=== PATIENT | female | born 1990 | race Caucasian/White ===

== ENCOUNTER 2017-10-24 06:43 | Inpatient (IN) | payer BC ==
[2017-10-24] MEDS ORDERED: RINGERS SOLUTION,LACTATED 300 ML IV ONE (06:59)
[2017-10-24] MEDS ORDERED: OXYTOCIN/NORMAL SALINE 20 UNIT/1,000 ML RTUINJ IV PRN ×2 (06:59→14:06)
[2017-10-24 08:00] LABS: ABSOLUTE EOSINOPHILS # (AUTO) 0.1 10^3/uL (0.0-0.6); ABSOLUTE LYMPHOCYTES (AUTO) 1.4 10^3/uL (0.5-4.7); ABSOLUTE MONOCYTES (AUTO) 0.4 10^3/uL (0.1-1.4); ABSOLUTE NEUT (AUTO) 4.5 10^3/uL (1.7-8.2); BASOPHILS % (AUTO) 0.5 % (0-2); EOSINOPHILS % (AUTO) 1.6 % (0-6); HEMATOCRIT 32.6 % (36.0-47.0); LYMPHOCYTES % (AUTO) 22.1 % (13-45); MEAN CORPUSCULAR HEMOGLOBIN 28.5 pg (27.0-33.4); MEAN CORPUSCULAR HGB CONC 33.9 g/dL (32.0-36.0); MEAN CORPUSCULAR VOLUME 84 fl (80-97); MONOCYTES % (AUTO) 6.6 % (3-13); PLATELET COUNT 168 10^3/uL (150-450); RED BLOOD COUNT 3.87 10^6/uL (3.72-5.28); RED CELL DISTRIBUTION WIDTH 17.7 % (11.5-14.0); SEGMENTED NEUTROPHILS % (AUTO) 69.2 % (42-78); TOTAL CELLS COUNTED % (AUTO) 100 %; WHITE BLOOD COUNT 6.5 10^3/uL (4.0-10.5)
[2017-10-24] MEDS ORDERED: MISOPROSTOL 0.2 MG TABLET ONE (08:12)
[2017-10-24] MEDS ORDERED: LIDOCAINE 1% INJ-PF (10 MG/ML) 30 ML SDV ONE (08:12)
[2017-10-24] MEDS ORDERED: OXYTOCIN/NORMAL SALINE 20 UNIT/1,000 ML RTUINJ ONE (08:12)
[2017-10-24 08:20] LABS: APPEARANCE,URINE CLOUDY; BILIRUBIN,URINE NEGATIVE (NEGATIVE); COLOR,URINE YELLOW; GLUCOSE, URINE NEGATIVE (NEGATIVE); KETONES,URINE NEGATIVE (NEGATIVE); LEUKOCYTE ESTERASE,URINE LARGE (NEGATIVE); NITRITE,URINE NEGATIVE (NEGATIVE); PROTEIN,URINE NEGATIVE (NEGATIVE)
[2017-10-24] MEDS: RINGERS SOLUTION,LACTATED 1,000 ML IV PRN ×3 (08:27→13:26)
[2017-10-24 08:40] LABS: URINE AMPHETAMINES SCREEN NEGATIVE; URINE BARBITURATES SCREEN NEGATIVE; URINE BENZODIAZEPINES SCREEN NEGATIVE; URINE COCAINE SCREEN NEGATIVE; URINE MARIJUANA (THC) SCREEN NEGATIVE; URINE METHADONE SCREEN NEGATIVE; URINE PHENCYCLIDINE SCREEN NEGATIVE
--- NOTE | 2017-10-24 09:12 | Admission Physical ---
Datetime Report Generated by CPN: 10/24/2017 09:12 CURRENT ADMISSION Chief Complaint: Scheduled Induction of Labor Indication for Induction: Maternal Diabetes Admit Impression : Term, Intrauterine ; Induction of Labor Admit Plan: Admit to Unit; Initiate Labor Induction Protocol ALLERGIES Medication Allergies: No Medication Allergies: No Known Allergies (10/24/2017) Latex: No Latex Allergies OBSTETRICAL HISTORY EDC: 10/28/2017 00:00 : 3 Para: 2 Term: 2 : 0 Ectopic: 0 Livin Cesareans: 0 Gestational Diabetes: Yes Rh Sensitization: No Incompetent Cervix: No VALERIO: No Infertility: No ART Treatment: No Uterine Anomaly: No IUGR: No Hx Previous C/S: No Macrosomia: No Hx Loss/Stillborn: No PIH: No Hx : No Placenta Previa/Abruption: No Depression/PP Depression: No PTL/PROM: No Post Hemorrhage: No Current Procedures: Ultrasound; NST Obstetrical History Comments: G1 2012 39.6 baby girl 8lbs 6oz G2 2013 40.1 baby girl 8lbs 1oz G3 current , GDM diet controlled SEE RECORDS Alcohol: No Marijuana : No Cocaine: No Other Illicit Drugs: No Cigarettes: Never Smoker. 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 No flares since 15 y/o. wisdom teeth removal (2005) mole removed (1995) INFECTIOUS HISTORY Gonorrhea: No Genital Herpes: No Chlamydia: No Tuberculosis: No Syphilis: No Hepatitis: No HIV/AIDS Exposure: No Rash or Viral Illness: No HPV: No PHYSICAL EXAM General: Normal HEENT: Normal Neurologic: Normal Thyroid: Normal Heart: Normal Lungs: Normal Breast: Normal Back: Normal Abdomen: Normal Genitourinary Exam: Normal Extremities: Normal DTRs: Normal Pelvic Type: Adequate Vital Signs: Reviewed VAGINAL EXAM Dilatation: 3 Effacement: 75 Station: -2 MEMBRANES Pooling: Negative Membranes: Intact FETUS A EGA: 39.3 Monitoring: External US FHR- Baseline: 145 Variability: Moderate 6-25bpm Accelerations: 15X15 Decelerations: None FHR Category: Category I Estimated Weight (gm): 3800 Presentation: Vertex PLANS FOR LABOR AND DELIVERY Labor and Delivery: None Pain Management: None Feeding Preference: Breast Circumcision: N/A INFORMED CONSENT Signature: with User ID: [email or web address]
--- NOTE | 2017-10-24 11:03 | L&D Progress Notes ---
PROGRESS NOTES Datetime Report Generated by CPN: 10/24/2017 11:02 PROGRESS NOTE Impression Other: IUP @ 39w3d- IOL-stable Procedures: Artificial ROM; Sterile Vag Exam Plan: Continue Present Management Informed Consent Obtained: Vaginal Delivery; Induction of Labor; Risks, Benefits and Alternatives Discussed Vital Signs : Reviewed; Within Normal Limits Comment: S: pt. reports mild cramping with contractions, ready for AROM O: VSS, pit @ 20mu/min, cervix as stated A: IUP @ [id number], AROM-clear fluid P: continue IOL, epidural prn VAGINAL EXAM Dilatation: 3-4 Dilatation: 3 Effacement: 50 Effacement: 75 Station: -2 Station: -2 Contractions: 2-4 MEMBRANES Pooling: Negative Membranes: Ruptured Membranes: Intact Amniotic Fluid Color: Clear FETUS A Accelerations: 15X15 Decelerations: None FHR Category: Category I : 39.3 Estimated Weight (gm): 3800 Presentation: Vertex SIGNATURE SIGNATURE: [id number] SIGNATURE: [id number] Assignment: Bre Enriquez MD Signature: with User ID: Katya : with User ID: [email or web address]
[2017-10-24] MEDS ORDERED: EPHEDRINE SULFATE INJ 50 MG/1 ML AMPULE ONE (12:20)
[2017-10-24] MEDS ORDERED: FENTANYL/BUPIVACAINE/NS/PF 300 MCG/150 ML RTUINJ EPI ONE (12:20)
[2017-10-24] MEDS ORDERED: BUPIVACAINE HCL 0.25 % INJ/PF (2.5 MG/1 ML) 30 ML VIAL ONE (12:20)
[2017-10-24] MEDS ORDERED: NA PHOS,M-B/NA PHOS,DI-BA (ADULT) 133 ML ENEMA PR PRN (14:06)
[2017-10-24] MEDS ORDERED: MAGNESIUM HYDROXIDE SUSP 30 ML UDCUP PO PRN (14:06)
[2017-10-24] MEDS ORDERED: PROMETHAZINE HCL 25 MG SUPP.RECT PR PRN (14:06)
[2017-10-24] MEDS ORDERED: DIPHENHYDRAMINE HCL 25 MG CAPSULE PO PRN (14:06)
[2017-10-24] MEDS ORDERED: PROMETHAZINE HCL 25 MG TABLET PO PRN (14:06)
[2017-10-24] MEDS ORDERED: DIPH/PERTUSS(ACELL)/TETANUS VAC/PF 0.5 ML SYR (>=10YO) IM PRN (14:06)
[2017-10-24] MEDS ORDERED: PROMETHAZINE HCL INJ 25 MG/1 ML VIAL IV PRN (14:06)
[2017-10-24] MEDS ORDERED: PSEUDOEPHEDRINE HCL 30 MG TABLET PO PRN (14:06)
[2017-10-24] MEDS ORDERED: ACETAMINOPHEN WITH CODEINE #3 TABLET PO PRN ×2 (14:06)
[2017-10-24] MEDS ORDERED: DIBUCAINE 1% OINTMENT 28 GM TP PRN (14:06)
[2017-10-24] MEDS ORDERED: ACETAMINOPHEN 325 MG TABLET PO PRN (14:06)
[2017-10-24] MEDS ORDERED: MEASLES,MUMPS&RUBELLA VACC/PF 0.5 ML VIAL SUBCUT PRN (14:06)
[2017-10-24] MEDS ORDERED: GLYCERIN/WITCH HAZEL LEAF 1 EACH MED..PAD TP PRN (14:06)
[2017-10-24] MEDS ORDERED: BENZOCAINE/MENTHOL AEROSOL SPRAY 56 ML TOP PRN (14:06)
[2017-10-24] MEDS ORDERED: ACETAMINOPHEN 650 MG SUPP.RECT PR PRN (14:06)
[2017-10-24] MEDS: FERROUS SULFATE 325 MG TABLET PO SCH (19:39)
[2017-10-24] MEDS: DOCUSATE SODIUM 100 MG CAPSULE PO SCH (19:39)
[2017-10-24] MEDS: FAMOTIDINE 20 MG TABLET PO SCH (21:43)
[2017-10-24] MEDS: IBUPROFEN 800 MG TABLET PO SCH (21:44)
[2017-10-25] MEDS: IBUPROFEN 800 MG TABLET PO SCH ×3 (05:47→21:24)
[2017-10-25 06:52] LABS: HEMATOCRIT 33.2 % (36.0-47.0); HEMOGLOBIN 11.4 g/dL (12.0-15.5); MEAN CORPUSCULAR HGB CONC 34.3 g/dL (32.0-36.0); MEAN CORPUSCULAR VOLUME 85 fl (80-97); PLATELET COUNT 150 10^3/uL (150-450); RED BLOOD COUNT 3.92 10^6/uL (3.72-5.28); RED CELL DISTRIBUTION WIDTH 17.8 % (11.5-14.0); WHITE BLOOD COUNT 8.6 10^3/uL (4.0-10.5)
--- NOTE | 2017-10-25 08:55 | PDOC PROGRESS REPORT ---
Subjective-OB Progress Note for:: 10/25/17 Subjective: day #1 s/p denies concerns, states lochia is stable pain is well controlled, voiding without difficulty. Physical Exam (OB) Vital Signs: Temp Pulse Resp BP Pulse Ox 98.2 F 85 18 127/77 H 100 10/24/17 19:20 10/24/17 19:20 10/24/17 19:20 10/24/17 19:20 10/24/17 19:20 Intake & Output 10/24/17 10/25/17 10/26/17 06:59 06:59 06:59 Weight 92.2 kg - Lochia Lochia Amount: Scant < 10 ml Lochia Color: Rubra/Red - Abdomen Description: Tender, Soft Hernia Present: No Fundal Description: Firm, Midline Fundal Height: u/u - u/2 Objective-Diagnostic Laboratory: 10/25/17 06:34 10/25/17 06:34 WBC 8.6 RBC 3.92 Hgb 11.4 L Hct 33.2 L MCV 85 MCH 29.0 MCHC 34.3 RDW 17.8 H Plt Count 150 Assessment and Plan(PN) - Assessment and Plan (1) Gestational diabetes mellitus (GDM) in childbirth, diet controlled Is this a current diagnosis for this admission?: Yes Plan: follow up yearly (2) Vaginal delivery Is this a current diagnosis for this admission?: Yes Plan: routine pp care - Time Spent with Patient Time with patient: Less than 15 minutes Critical Time spent with patient: Less than 15 minutes Medications reviewed and adjusted accordingly: Yes - Disposition Anticipated Discharge: Home Within: within 24 hours
[2017-10-25] MEDS: DOCUSATE SODIUM 100 MG CAPSULE PO SCH ×2 (11:05→18:40)
[2017-10-25] MEDS: FERROUS SULFATE 325 MG TABLET PO SCH ×2 (11:06→18:15)
[2017-10-25] MEDS: SENNOSIDES/DOCUSATE 8.6-50 MG 1 EACH TABLET PO SCH (11:06)
[2017-10-25] MEDS: PRENATAL VITAMIN W DHA CAPSULE PO SCH (11:06)
[2017-10-25] MEDS: FAMOTIDINE 20 MG TABLET PO SCH ×2 (11:15→21:15)
[2017-10-26] MEDS: IBUPROFEN 800 MG TABLET PO SCH (06:30)
[2017-10-26 08:46] VITALS: BP 130/74
[2017-10-26] MEDS: PRENATAL VITAMIN W DHA CAPSULE PO SCH (09:41)
[2017-10-26] MEDS: DOCUSATE SODIUM 100 MG CAPSULE PO SCH (09:41)
[2017-10-26] MEDS: FAMOTIDINE 20 MG TABLET PO SCH (09:41)
[2017-10-26] MEDS: FERROUS SULFATE 325 MG TABLET PO SCH (09:41)
[2017-10-26] MEDS: SENNOSIDES/DOCUSATE 8.6-50 MG 1 EACH TABLET PO SCH (09:41)
--- NOTE | 2017-10-26 09:47 | PDOC PROGRESS REPORT ---
Subjective-OB Progress Note for:: 10/26/17 Physical Exam (OB) Vital Signs: Temp Pulse Resp BP Pulse Ox 98.2 F 65 16 130/74 H 99 10/26/17 08:04 10/26/17 08:04 10/26/17 08:04 10/26/17 08:04 10/26/17 08:04 Intake & Output 10/25/17 10/26/17 10/27/17 06:59 06:59 06:59 Intake Total 975 Balance 975 - PIH/Pre-Eclampsia Headache: Absent Epigastric Pain: No Visual Changes: No - Lochia Lochia Amount: Small 10-25 ml Lochia Color: Rubra/Red - Abdomen Description: Soft Hernia Present: No Bowel Sounds: Normoactive Flatus Presence: Present Stool: Yes Fundal Description: Firm, Midline Fundal Height: u/u - u/2 Objective-Diagnostic Laboratory: 10/25/17 06:34 Assessment and Plan(PN) - Time Spent with Patient Medications reviewed and adjusted accordingly: Yes - Disposition Anticipated Discharge: Home
--- NOTE | 2017-10-26 09:52 | PDOC DISCHARGE SUMMARY ---
Final Diagnosis Discharge Date: 10/26/17 - Final Diagnosis (1) Gestational diabetes mellitus (GDM) in childbirth, diet controlled Is this a current diagnosis for this admission?: Yes (2) Vaginal delivery Is this a current diagnosis for this admission?: Yes Discharge Data - Discharge Medication Home Medications: 105/Iron/Folic AC/Dha [Prena1 True Combo Pack] 1 each PO DAILY Gestational Age: 39.3 wks Reason(s) for Admission: Induction of Labor, Gestional Diabetes Procedures: Ultrasound Intrapartum Procedure(s): Spontaneous Vaginal Delivery - Data Baby 1 Female at 1 minute: 9 at 5 minutes: 9 Home with Mother: Yes Complications: No - Diagnosis Test Laboratory: Temp Pulse Resp BP Pulse Ox 98.2 F 65 16 130/74 H 99 10/26/17 08:04 10/26/17 08:04 10/26/17 08:04 10/26/17 08:04 10/26/17 08:04 10/24/17 10/24/17 10/25/17 06:48 07:37 06:34 RBC 3.87 3.92 Hgb 11.0 L 11.4 L Hct 32.6 L 33.2 L Urine Opiates Screen NEGATIVE - Discharge information/Instructions Discharge Activity: Activity As Tolerated, Balance Activity w/Rest, Pelvic Rest , Slowly Increase Activity, No tub bath Discharge Diet: Regular Disposition: HOME, SELF-CARE Follow up with: [facility] in: 4, Weeks
--- NOTE | 2017-11-01 09:54 | Delivery Summary ---
Del Sum A-C Datetime Report Generated by CPN: 11/01/2017 09:54 DELIVERY PERSONNEL DELIVERY PERSONNEL: [phone] Delivery Doctor:: Natty Hinson CNM Nurse Food Service Utility Worker Certified:: Natty Hinson CNM Labor and Delivery Nurse:: Racheal David RN Labor and Delivery Nurse:: ALFREDO Schmidt Student Observers:: Nirali CRAWFORD RN, nurse resident Alma MORA Director Of Training/SUPERVISOR WATERWORKS: [facility] [employer] Additional Personnel: : Rebecca Rebolledo RN MATERNAL INFORMATION Delivery Anesthesia: Epidural Medications After Delivery: Pitocin Bolus-Please Comment; Pitocin Drip 20 Units/1000ml NSS Maternal Complications: None; Other Complication Details: GDM Provider Comments: pt. with urge to push after epidural and found to be c/c/+1. Started pushing and head delivered without difficulty. Pt. stopped pushing, head rotated from JOVI to MAYDA and with much coaching and effort pt. resumed pushing, shoulders delivered and rest of the body delivered without difficulty. Vigorous respiratory effort and cry spontaneously at and baby placed on maternal abdomen skin to skin. However baby with poor respiratory effort after _3min of age. Cord clamped x2 and cut by FOB and baby to warmer for nursery nurse assessment. Placenta delivered spontaneously intact (3vc noted). Fundus firm and bleeding stable. Superficial abrasions as noted. Patient and baby stable and back on skin to skin and attempting at this time. LABOR SUMMARY EDC: 10/28/2017 00:00 No. Babies in Womb: 1 Attempted: No Labor Anesthesia: Epidural LABOR INFORMATION Reason for Induction: Maternal Diabetes Onset of Labor: 10/24/2017 10:50 Complete Dilatation: 10/24/2017 13:29 Oxytocin: Induction Group B Beta Strep: neg Antibiotics # of Doses: 0 Steroids Given: None Reason Steroids Not Administered: Not Applicable MEMBRANES Membranes Rupture Method: Artificial Rupture of Membranes: 10/24/2017 10:50 Length of Rupture (hr): 2.75 Amniotic Fluid Color: Clear Amniotic Fluid Amount: Small Amniotic Fluid Odor: Normal STAGES OF LABOR Stage 1 hr: 2 Stage 1 min: 39 Stage 2 hr: 0 Stage 2 min: 6 Stage 3 hr: 0 Stage 3 min: 6 Total Time in Labor hr: 2 Total Time in Labor min: 51 VAGINAL DELIVERY Episiotomy: None Laceration #1: None Other Laceration: SUPERFICIAL ABRASIONS Laceration Repair: Not Applicable Sponge Count Correct: N/A Sharps Count Correct: N/A CSECTION DELIVERY Primary Indication: N/A Secondary Indication: N/A CSection Incidence: N/A Labor: N/A Elective: N/A CSection Incision: N/A BABY A INFORMATION Infant Delivery Date/Time: 10/24/2017 13:35 Method of Delivery: Vaginal Method of Delivery: Vaginal Born in Route : No : N/A Forceps: N/A Vacuum Extraction: N/A Shoulder Dystocia : No PRESENTATION/POSITION BABY A Presentation: Cephalic Presentation: Cephalic Cephalic Presentation: Vertex Vertex Position: Right Occipital Anterior Breech Presentation: N/A PLACENTA INFORMATION BABY A Placenta Delivery Time : 10/24/2017 13:41 Placenta Method of Delivery: Spontaneous Placenta Method of Delivery: Spontaneous Placenta Status: Delivered SCORES BABY A Heart Rate 1 min: >100 bpm Resp Effort 1 min: Good Cry Reflex Irritability 1 min: Cough or Sneeze or Pulls Away Muscle Tone 1 min: Active Motion Color 1 min: Body [place], Extremities Blue Resuscitation Effort 1 min: Tactile Stimulation SCORE 1 MIN: 9 Heart Rate 5 min: >100 bpm Resp Effort 5 min: Good Cry Reflex Irritability 5 min: Cough or Sneeze or Pulls Away Muscle Tone 5 min: Active Motion Color 5 min: Body [place], Extremities Blue Resuscitation Effort 5 min: Tactile Stimulation SCORE 5 MIN: 9 INFANT INFORMATION BABY A Gestational Age at Delivery: 39.3 Gestational Status: Full Term- 39- 40.6 Weeks Outcome : Liveborn Condition : Stable Sex: Female Infant Sex: Female IDENTIFICATION BABY A Infant Verification Date/Time: 10/24/2017 13:46 ID Band Number: [id number] Mother's Name Verified: Yes RN Verifying : C. tenisha, RN/ B. Krysdy, RN WEIGHT/LENGTH BABY A Birthweight (gm): 3420 Weight (lb): 7 Weight (oz): 9 Infant Length (in): 20.00 Infant Length (cm): 50.80 CORD INFORMATION BABY A No. Cord Vessels: 3 Nuchal Cord : N/A Cord Blood Taken: Yes-For Eval (Mom's Blood Type - or O+) Infant Suction: Mouth; Nose ASSESSMENT BABY A Infant Complications: None Physical Findings at Delivery: Bruising Physical Findings- Other: slight facial bruising on forehead Infant Respirations: Grunting Skin to Skin: Yes Skin to Skin: Yes Skin to Skin: Yes Skin to Skin: No Miller Head/ALS Called : No Care By: Beth Burkett RN BABY B INFORMATION : N/A SIGNATURES Assignment: Bre Enriquez MD Signature: with User ID: Katya : with User ID: [email or web address]
== END 2017-10-26 13:16 | disposition home or self-care (01) | DRG 775 ==
LOC: LR 06:43 → 2S 16:20
PROVIDERS: ADMIT Obstetrics & Gynecology Gynecology; ATTEND Obstetrics & Gynecology Gynecology
PROC: 10E0XZZ Delivery of Products of Conception, External Approach (ICD-10-PCS; principal; 2017-10-24)
PROC: 3E033VJ Introduction of Other Hormone into Peripheral Vein, Percutaneous Approach (ICD-10-PCS; 2017-10-24)
PROC: 10907ZC Drainage of Amniotic Fluid, Therapeutic from Products of Conception, Via Natural or Artificial Opening (ICD-10-PCS; 2017-10-24)
PROC: 4A1HXCZ Monitoring of Products of Conception, Cardiac Rate, External Approach (ICD-10-PCS; 2017-10-24)
DX: O24.420 Gestational diabetes mellitus in childbirth, diet controlled (principal); Z3A.39 39 weeks gestation of pregnancy; Z37.0 Single live birth
CPT/HCPCS: 36415; 80307; 81005; 85025; 85027; 86592; 86850; 86900; 86901; J2590; J3010; J3490

== ENCOUNTER 2019-03-29 17:03 | Emergency (ER) | payer BC ==
[2019-03-29] MEDS ORDERED: ACETAMINOPHEN 325 MG TABLET PO ONE (18:01)
--- NOTE | 2019-03-29 18:01 | ER Document Report ---
ED Medical Screen (RME) - General Chief Complaint: Flu Symptoms Stated Complaint: FLU SYMPTOMS Time Seen by Provider: 03/29/19 17:57 Primary Care Provider: BOBBI SOLER MD [Primary Care Provider] - Follow up as needed Mode of Arrival: Ambulatory Information source: Patient Notes: 29-year-old female presents to ED for complaint of headaches from all over starting last night at 9 PM. States by the end of the night she was hurting all over and she had a headache. She states that first she thought it was just from working out at the gym. Patient states she went home went to bed this morning she woke up with a very bad headache took some Motrin did not do anything. Patient states her sister came over at 1130 she took her temperature was 102. She states she took a drink migraine at 4 PM that helped some but she still has a headache and her body aches. The temperature in the triage area was 99.6. Will run flu and urine test and have seen by the next provider. I have greeted and performed a rapid initial assessment of this patient. A comprehensive ED assessment and evaluation of the patient, analysis of test results and completion of medical decision making process will be conducted by an additional ED providers. TRAVEL OUTSIDE OF THE [place] IN LAST 30 DAYS: No - Related Data Allergies/Adverse Reactions: No Known Allergies Allergy (Verified 10/24/17 06:53) Past Medical History - Immunizations Hx Diphtheria, Pertussis, Tetanus Vaccination: Yes Physical Exam - Vital signs Vitals: Temp Pulse Resp BP Pulse Ox 99.6 F 103 H 18 131/70 H 96 03/29/19 17:39 03/29/19 17:39 03/29/19 17:39 03/29/19 17:39 03/29/19 17:39 Course - Vital Signs Vital signs: Temp Pulse Resp BP Pulse Ox 99.6 F 103 H 18 131/70 H 96 03/29/19 17:39 03/29/19 17:39 03/29/19 17:39 03/29/19 17:39 03/29/19 17:39 Doctor's Discharge - Discharge Referrals: BOBBI SOLER MD [Primary Care Provider] - Follow up as needed
[2019-03-29 19:08] LABS: A TYPE INFLUENZA AG NEGATIVE (NEGATIVE); B INFLUENZA AG NEGATIVE (NEGATIVE)
[2019-03-29 19:10] LABS: APPEARANCE,URINE CLEAR; BILIRUBIN,URINE NEGATIVE (NEGATIVE); COLOR,URINE YELLOW; GLUCOSE, URINE NEGATIVE (NEGATIVE); KETONES,URINE NEGATIVE (NEGATIVE); PROTEIN,URINE NEGATIVE (NEGATIVE); URINE SPECIFIC GRAVITY 1.025
[2019-03-29 19:35] VITALS: BP 132/68
--- NOTE | 2019-03-29 19:35 | ER Document Report ---
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 She reports she went to the gym on did intense upper body workout. She reports that night she started having a headache. She reports her sister took her temperature was 102. Prior to arrival she took Excedrin and was ordered Tylenol upon arrival. She reports the headache is gone now and she is feeling much better. Patient also has a gallon of water with her and reports she has been pushing the fluids. Temperature was 99.7 upon arrival and now is 98. Patient looks good nontoxic. Denies vomiting diarrhea. 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 IN LAST 30 DAYS: No - HEENT HEENT: Atraumatic, Normal ENT Exam, Normocephalic, PERRLA. negative: Conjuctival Injection, Pharyngeal Erythema, Tympanic Membrane Red - NECK Neck: Normal Inspection, Supple. negative: Lymphadenopathy-Left, Lymphadenopathy-Right - RESPIRATORY Respiratory: Breath Sounds Normal, No Respiratory Distress. negative: Rhonchi, Wheezing - CARDIOVASCULAR Cardiovascular: Regular Rate, Regular Rhythm - GI/ABDOMEN Gastrointestinal: Abdomen Soft, Abdomen Non-Tender - MUSCULOSKELETAL/EXTREMETIES Musculoskeletal/Extremeties: CHAPISANDREIA - NEURO Level of Consciousness: Awake, Alert, Appropriate Motor/Sensory: No Motor Deficit - DERM Integumentary: Warm, Dry Course - Re-evaluation Re-evalutation: 03/29/19 19:39 29-year-old female that presents with fever headache body aches that started yesterday. Patient reports history of migraines but has not had them in a while. Also reports that she did an intense workout yesterday thought she was sore from that. She did take Excedrin and upon arrival to the emergency department she was prescribed Tylenol. She reports her headache is gone she is feeling much better. No fever at this time. Denies pain with void denies urinary frequency. UA negative influenza test negative. Patient was instructed to monitor symptoms to return if she starts having intense muscle aches and pains. Discussed rhabdomyelosis with her and the importance of hydration, she verbalized understanding to all instructions. Urine Color YELLOW 03/29/19 18:29 Urine Appearance CLEAR 03/29/19 18:29 Urine pH 7.0 (5.0-9.0) 03/29/19 18:29 Ur Specific [place] 1.025 03/29/19 18:29 Urine Protein NEGATIVE mg/dL (NEGATIVE) 03/29/19 18:29 Urine Glucose (UA) NEGATIVE mg/dL (NEGATIVE) 03/29/19 18:29 Urine Ketones NEGATIVE mg/dL (NEGATIVE) 03/29/19 18:29 Urine Blood NEGATIVE (NEGATIVE) 03/29/19 18:29 Urine RBC (Auto) 10 /HPF 03/29/19 18:29 - Vital Signs Vital signs: Temp Pulse Resp BP Pulse Ox 99.6 F 103 H 18 131/70 H 96 03/29/19 17:39 03/29/19 17:39 03/29/19 17:39 03/29/19 17:39 03/29/19 17:39 - Laboratory Laboratory results interpreted by me: 03/29/19 18:29 Urine Urobilinogen 4.0 H Discharge - Discharge Clinical Impression: Headache, Flu-like symptoms Condition: Stable Disposition: HOME, SELF-CARE Instructions: Acetaminophen, Fever ([facility]), Headache ([facility]) Additional Instructions: *You have been evaluated for headache, body aches, fever *monitor your temperature, take tylenol as indicated *Push fluids *Follow up with a primary care provider within on week for recheck *Return to ED for worsening condition, changes, needs, concerns Referrals: BOBBI SOLER MD [Primary Care Provider] - Follow up in 3-5 days
== END 2019-03-29 19:42 | disposition home or self-care (01) ==
LOC: ER 17:03
DX: R51 Headache (principal); R50.9 Fever, unspecified; M79.10 Myalgia, unspecified site
CPT/HCPCS: 81001; 87804; 99283